=== PATIENT | male | born 1960 | race Caucasian/White ===

== ENCOUNTER → 2016-03-31 | Outpatient (CLI) | payer OTHER | LOC: BHSO 15:27 | DX: F41.1 Generalized anxiety disorder (principal) ==

== ENCOUNTER → 2016-05-26 | Outpatient (CLI) | payer OTHER | LOC: BHSO 15:23 | DX: F41.1 Generalized anxiety disorder (principal) ==

== ENCOUNTER → 2016-09-01 | Outpatient (CLI) | payer OTHER | LOC: BHSO 15:41 | DX: F43.10 Post-traumatic stress disorder, unspecified (principal) ==

== ENCOUNTER → 2016-12-01 | Outpatient (CLI) | payer OTHER | LOC: BHSO 15:45 | DX: F43.10 Post-traumatic stress disorder, unspecified (principal) ==

== ENCOUNTER → 2017-02-23 | Outpatient (CLI) | payer BC | LOC: BHSO 15:37 | DX: Z01.89 Encounter for other specified special examinations (principal) ==

== ENCOUNTER → 2017-04-30 | Outpatient (CLI) | payer BC | LOC: BHSO 15:51 | DX: F41.1 Generalized anxiety disorder (principal) | CPT/HCPCS: G0463 ==

== ENCOUNTER → 2017-09-21 | Outpatient (CLI) | payer BC | LOC: BHSO 10:37 | DX: F43.10 Post-traumatic stress disorder, unspecified (principal) | CPT/HCPCS: G0463 ==

== ENCOUNTER → 2018-01-01 | Outpatient (CLI) | payer BC | LOC: BHSO 14:57 | DX: F06.32 Mood disorder due to known physiological condition with major depressive-like episode (principal) | CPT/HCPCS: G0463 ==

== ENCOUNTER → 2018-03-15 | Outpatient (CLI) | payer BC | LOC: BHSO 14:53 | DX: F43.10 Post-traumatic stress disorder, unspecified (principal) | CPT/HCPCS: G0463 ==

== ENCOUNTER → 2018-06-11 | Outpatient (CLI) | payer BC | LOC: BHSO 15:17 | DX: F43.10 Post-traumatic stress disorder, unspecified (principal) | CPT/HCPCS: G0463 ==

== ENCOUNTER → 2018-10-03 | Outpatient (CLI) | payer BC | LOC: BHSO 14:45 | DX: F43.10 Post-traumatic stress disorder, unspecified (principal) | CPT/HCPCS: G0463 ==

== ENCOUNTER → 2018-12-31 | Outpatient (CLI) | payer BC | LOC: BHSO 15:12 | DX: F44.1 Dissociative fugue (principal) | CPT/HCPCS: G0463 ==

== ENCOUNTER → 2019-05-02 | Outpatient (CLI) | payer BC | LOC: BHSO 15:28 | DX: F43.10 Post-traumatic stress disorder, unspecified (principal) | CPT/HCPCS: G0463 ==

== ENCOUNTER → 2019-08-26 | Outpatient (CLI) | payer BC | LOC: COL.RAD 12:35 | DX: Z01.812 Encounter for preprocedural laboratory examination (principal); R22.42 Localized swelling, mass and lump, left lower limb | CPT/HCPCS: Q9967 ==

== ENCOUNTER → 2019-10-21 | Outpatient (CLI) | payer BC | LOC: BHSO 15:32 | DX: F43.10 Post-traumatic stress disorder, unspecified (principal) | CPT/HCPCS: G0463 ==

== ENCOUNTER → 2020-01-15 | Outpatient (CLI) | payer BC | LOC: BHSO 15:42 | DX: F43.10 Post-traumatic stress disorder, unspecified (principal) | CPT/HCPCS: G0463 ==

== ENCOUNTER → 2022-05-23 | Outpatient (CLI) | payer BC | LOC: COL.RAD 09:05 | DX: M51.36 Other intervertebral disc degeneration, lumbar region (principal); M48.061 Spinal stenosis, lumbar region without neurogenic claudication; M47.816 Spondylosis without myelopathy or radiculopathy, lumbar region ==